=== PATIENT | male | born 1985 | race African-American/Black ===

== ENCOUNTER 2017-04-19 07:36 | Emergency (ER) | payer OTHER | END 2017-04-19 08:32 | disposition home or self-care (01) | LOC: FTE 07:36 | DX: Z76.0 Encounter for issue of repeat prescription (principal); E11.9 Type 2 diabetes mellitus without complications; F17.210 Nicotine dependence, cigarettes, uncomplicated; Z79.84 Long term (current) use of oral hypoglycemic drugs | CPT/HCPCS: 99281; Z7502 ==

== ENCOUNTER 2017-05-08 20:53 | Emergency (ER) | payer OTHER | END 2017-05-08 21:30 | disposition home or self-care (01) | LOC: E/R 21:30 | DX: Z76.0 Encounter for issue of repeat prescription (principal); E11.9 Type 2 diabetes mellitus without complications; F17.210 Nicotine dependence, cigarettes, uncomplicated; Z79.84 Long term (current) use of oral hypoglycemic drugs | CPT/HCPCS: 99281; Z7502 ==

== ENCOUNTER 2017-08-24 00:31 | Emergency (ER) | payer OTHER | END 2017-08-24 04:04 | disposition home or self-care (01) | LOC: FTE 00:31 | DX: G47.00 Insomnia, unspecified (principal); E11.9 Type 2 diabetes mellitus without complications; F17.210 Nicotine dependence, cigarettes, uncomplicated; Z79.84 Long term (current) use of oral hypoglycemic drugs | CPT/HCPCS: 99281; Z7502 ==

== ENCOUNTER 2017-08-28 15:22 | Emergency (ER) | payer OTHER | END 2017-08-28 17:35 | disposition home or self-care (01) | LOC: FTE 15:22 | DX: L02.11 Cutaneous abscess of neck (principal); F17.210 Nicotine dependence, cigarettes, uncomplicated; E11.9 Type 2 diabetes mellitus without complications; Z79.84 Long term (current) use of oral hypoglycemic drugs | CPT/HCPCS: 10060; 99284-25 ==

== ENCOUNTER 2017-10-15 02:30 | Emergency (ER) | payer OTHER ==
[2017-10-15] MEDS ORDERED: TETRACAINE 0.5% 4 ML OPH LEFT EYE (03:30)
[2017-10-15] MEDS ORDERED: FLUORESCEIN STRIP LEFT EYE (03:30)
== END 2017-10-15 03:38 | disposition home or self-care (01) ==
LOC: FTE 02:30
DX: S05.92XA Unspecified injury of left eye and orbit, initial encounter (principal); E11.9 Type 2 diabetes mellitus without complications; F17.210 Nicotine dependence, cigarettes, uncomplicated; Y04.1XXA Assault by human bite, initial encounter; Z79.84 Long term (current) use of oral hypoglycemic drugs
CPT/HCPCS: 99283; Z7502

== ENCOUNTER 2017-12-07 05:33 | Emergency (ER) | payer OTHER | END 2017-12-07 06:30 | disposition home or self-care (01) | LOC: FTE 05:33 | DX: J06.9 Acute upper respiratory infection, unspecified (principal); E11.9 Type 2 diabetes mellitus without complications; F17.210 Nicotine dependence, cigarettes, uncomplicated; Z79.84 Long term (current) use of oral hypoglycemic drugs | CPT/HCPCS: 99283; Z7502 ==

== ENCOUNTER 2018-05-11 08:56 | Emergency (ER) | payer OTHER | END 2018-05-11 10:30 | disposition home or self-care (01) | LOC: E/R 08:56 | DX: H01.002 Unspecified blepharitis right lower eyelid (principal); E11.9 Type 2 diabetes mellitus without complications; F17.210 Nicotine dependence, cigarettes, uncomplicated; Z79.84 Long term (current) use of oral hypoglycemic drugs | CPT/HCPCS: 99283; Z7502 ==

== ENCOUNTER 2018-05-31 08:26 | Emergency (ER) | payer OTHER ==
[2018-05-31] MEDS: KETOROLAC 60 MG INJ IM (08:52)
== END 2018-05-31 10:56 | disposition home or self-care (01) ==
LOC: FTE 08:26
DX: M25.572 Pain in left ankle and joints of left foot (principal); E11.9 Type 2 diabetes mellitus without complications; Z79.84 Long term (current) use of oral hypoglycemic drugs
CPT/HCPCS: 73610; 73630-LT; 96372; 99284-25